=== PATIENT | female | born 1975 | race Caucasian/White ===

== ENCOUNTER → 2021-12-12 12:30 | Outpatient (BNVA) | payer MEDICAID, SELFPAY | PROVIDERS: Visit Provider Internal Medicine | DX: R76.8 Other specified abnormal immunological findings in serum (principal); K90.0 Celiac disease; M25.50 Pain in unspecified joint; Z11.59 Encounter for screening for other viral diseases | CPT/HCPCS: 80053; 81003; 82550; 82607; 82784; 83516; 83735; 84100; 84443; 84550; 85025; 85651; 86140; 86160; 86162; 86235; 86255; 86376; 86704; 86803; 87340; 99204 ==

== ENCOUNTER 2022-01-16 11:15 | Outpatient (CLI) | payer MEDICAID, SELFPAY ==
[2022-01-16 12:51] LABS: Complement C3 178 mg/dL (90-180)
== END 2022-01-16 11:16 | disposition home or self-care (01) ==
LOC: LAB 11:15
PROVIDERS: PCP Nurse Practitioner Family; Visit Provider Internal Medicine
DX: R76.8 Other specified abnormal immunological findings in serum (principal); K90.0 Celiac disease; M25.50 Pain in unspecified joint; R21 Rash and other nonspecific skin eruption; Z11.1 Encounter for screening for respiratory tuberculosis
CPT/HCPCS: 86160; 99214

== ENCOUNTER → 2022-02-04 16:22 | Outpatient (BNVA) | payer MEDICAID, SELFPAY | PROVIDERS: PCP Nurse Practitioner Family; Visit Provider Internal Medicine | DX: R76.8 Other specified abnormal immunological findings in serum (principal); K90.0 Celiac disease; M25.50 Pain in unspecified joint; L40.9 Psoriasis, unspecified; M19.041 Primary osteoarthritis, right hand; M47.812 Spondylosis without myelopathy or radiculopathy, cervical region | CPT/HCPCS: 36415; 72040; 72100; 72202; 73120; 80053; 82550; 83735; 84100; 85025; 85651; 86480 ==

== ENCOUNTER 2022-03-14 13:08 | Outpatient (CLI) | payer MEDICAID, SELFPAY ==
[2022-03-14 13:51] LABS: Basophils # 0.1 10^3/uL (0.0-0.1); Basophils % 1.1 %; Eosinophils # 0.1 10^3/uL (0.0-0.8); Eosinophils % 2.1 %; Hematocrit 40.5 % (37.0-47.0); Hemoglobin 13.2 g/dL (11.5-15.3); Lymphocytes # 2.3 10^3/uL (0.8-4.8); Lymphocytes % 33.8 %; Mean Corpuscular HGB Conc 32.6 g/dL (30.0-36.0); Mean Corpuscular Hemoglobin 28.1 pg (28.0-34.0); Mean Corpuscular Volume 86.2 fl (81-99); Mean Platelet Volume 9.4 fL (7.4-10.4); Monocytes # 0.5 10^3/uL (0.2-0.9); Monocytes % 7.7 %; Neutrophils # 3.67 10^3/uL (1.8-7.7); Nucleated Red Blood Cells % 0 %; Platelet Count 391 10^3/cmm (130-400); Red Cell Distribution Width 12.5 % (12.1-15.1); White Blood Count 6.7 10^3/uL (4.0-10.0)
[2022-03-14 14:19] LABS: Alanine Aminotransferase 17 U/L (0-33); Alkaline Phosphatase 117 U/L (35-105); Anion Gap 10.6 (5-19); Aspartate Amino Transferase 15 U/L (0-32); Blood Urea Nitrogen 14 mg/dL (6-20); Calcium 9.3 mg/dL (8.5-10.5); Carbon Dioxide 28 mmol/L (22-29); Chloride 102 mmol/L (98-107); Glomerular Filtration Rate 106.7 mL/min (90-130); Glucose 115 mg/dL (65-115); Osmolality Calculated 285 mOsm/kg (285-295); Potassium 3.6 mmol/L (3.5-5.1); Sodium 137 mmol/L (136-145); Total Bilirubin 0.2 mg/dL (0.15-1.2)
== END 2022-03-14 13:09 | disposition home or self-care (01) ==
LOC: LAB 13:14
PROVIDERS: PCP Nurse Practitioner Family; Visit Provider Internal Medicine
DX: R76.8 Other specified abnormal immunological findings in serum (principal)
CPT/HCPCS: 36415; 80053; 85025

== ENCOUNTER 2022-05-27 08:49 | Emergency (ER) | payer MEDICAID, SELFPAY ==
[2022-05-27 08:54] VITALS: BP 129/88; PULSE 138; RESP 15; TEMP 37.1; O2SAT 98; BMI 34.7
[2022-05-27 08:58] VITALS: BP 136/98; RESP 16; O2SAT 96
--- NOTE | 2022-05-27 09:04 | W.ED.GENADLT ---
HPI - General Adult General: Chief complaint: General Medical Stated complaint: Throat swollen Time Seen by Provider: 05/27/22 08:54 Source: patient Mode of arrival: ambulatory Limitations: no limitations History of Present Illness: Patient is a 47-year-old female presents to ED today with complaint of a sore throat and fevers. She states her throat began bothering her approximately 4 days ago. She is complaining of some dysphagia but is able to eat and drink and control secretions. She states yesterday she began running fevers as high as 101.0. 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 Patient has not noticed any change in her voice. She is not having any other URI-like symptoms. She is not having any abdominal pain. Onset (ago): day(s) Location: mouth (throat) Pain Consistency: constant Relieving factors: none Exacerbating factors: other (swallowing) Associated symptoms: Deny chest pain, dyspnea, headache(s), malaise, nausea, rash or vomiting Review of Systems Const: Reports: fever(s); Denies: body aches, fatigue or malaise Eyes: Denies: change in vision, blurry vision, photophobia or eye discharge ENMT: Reports: throat pain, enlarged tonsils and odynophagia; Denies: uvular edema, hoarseness, mouth pain, swelling of lips/tongue, oral sores, dental pain, ear or mastoid pain, nasal congestion, epistaxis or sinus pain Card: Denies: chest pain Resp: Denies: dyspnea GI: Denies: abdominal pain, nausea, vomiting or change in bowel habits Musc: Denies: neck pain Skin/Breast: Denies: rash Neuro: Denies: headache(s), dizziness or vertigo PFS ED PFSH: Medical History Celiac disease Rosacea Family History Other Arthritis CAD (coronary artery disease) Cancer Diabetes Lupus Denies family history of Dementia Stroke Social History Smoking and tobacco status: never smoked Alcohol intake: never Lives independently: Yes Household members: spouse Marital status: Physical Exam Const: COMMON NORMALS: no acute distress, average body habitus, patient oriented x3, no limitations, healthy appearing, alert and well nourished GENERAL APPEARANCE: cooperative ORIENTATION/CONSCIOUSNESS: Yes awake, Yes oriented to person, Yes oriented to place and Yes oriented to time HENMT: COMMON NORMALS: normocephalic, atraumatic, hearing grossly normal bilaterally, external ears normal, EAC's normal, TM's normal bilaterally, Normal external nose present, Normal nasal mucous membranes and turbinates present, moist oral mucous membranes and gingiva normal HEAD & SCALP: normal to inspection, normocephalic and atraumatic FACE & SINUS: normal facial exam NOSE: Normal external nose present and Normal nasal mucous membranes and turbinates present EXTERNAL EAR: Yes external ears normal EXTERNAL AUDITORY CANAL: EAC's normal TYMPANIC MEMBRANE: TM's normal bilaterally MOUTH: Normal oral and palatal mucosa present, lip normal and tongue normal THROAT: uvula midline and abnormal tonsil bilateral erythema and exudates; no uvular edema OTHER: no muffled voice, no REDUCING SALON ATTENDANT present, no neck swelling appreciated Eye: GENERAL EYE: appearance normal, both eyes and all related structures Neck/C-Spine: COMMON NORMALS: full ROM GENERAL: Yes normal visual inspection and Yes lymphadenopathy Resp: COMMON NORMALS: normal respiratory effort and clear to auscultation bilaterally AUSCULTATION: clear to auscultation bilaterally Cardio: COMMON NORMALS: regular rhythm RATE: tachycardic RHYTHM: regular rhythm GI: COMMON NORMALS: Normal to inspection, nondistended, normoactive bowel sounds present, Soft to palpation, non-tender and No hepatosplenomegaly present PALPATION: Yes Soft to palpation and Yes No hepatosplenomegaly present Neuro: OTTO COMA SCALE: document GCS findings Otto coma scale eye opening: Spontaneous Taylor coma scale verbal response: Orientated Otto coma scale motor response: Obey commands Taylor coma scale total score: 15 COMMON NORMALS: patient oriented x3 and CN's II-XII intact bilaterally SENSORIUM/ORIENTATION: Yes alert, Yes oriented to person, Yes oriented to place and Yes oriented to time Skin: COMMON NORMALS: no rashes or lesions noted GENERAL SKIN EXAM: no rashes or lesions noted Course Vital Signs: Vital signs: Vital Signs Temperature 98.7 F 05/27/22 08:54 Pulse Rate 138 H 05/27/22 08:54 Respiratory Rate 16 05/27/22 08:58 Blood Pressure 136/98 05/27/22 08:58 Pulse Oximetry 96 05/27/22 08:58 Oxygen Delivery Me thod 05/27/22 08:58 MDM - General Adult Medical Decision Making Patient has exudative tonsillitis with lymphadenopathy and fever in the absence of other URI-like symptoms. I think it would be appropriate to place her on antibiotics at this time. An allergy to penicillins. She will be placed on Keflex. Return to ED precautions given. Lab Data Laboratory Results Group A Strep Rapid Negative (Negative) 05/27/22 09:30 Discharge Plan Discharge Patient Disposition: Home Clinical Impression: Exudative tonsillitis Condition: Stable Prescriptions: New cephalexin 500 mg capsule 500 mg PO Q6H 7 Days Qty: 28 0RF No Action cetirizine 10 mg tablet 10 mg PO DAILY PRN fluticasone propionate 50 mcg/actuation spray,suspension 1 spray intranasal DAILY Rx Instructions: administer into each nostril ondansetron 4 mg tablet,disintegrating 4 mg PO Q8H hydroxychloroquine 200 mg tablet 200 mg PO BID 30 Days Qty: 60 0RF meloxicam 15 mg tablet 15 mg PO DAILY Qty: 30 3RF leflunomide 10 mg tablet 10 mg PO DAILY Qty: 30 1RF Discharge Orders: Discharge ED (Routine); Ordered 05/27/22 Ordered By: Laurie Brush Referrals: Melanie Abarca FNP [Primary Care Provider] - Patient Instructions: Tonsillitis - Adult Coding Level of Care Code ED Parachute Accessories Attacher for Chg Fwd Exam Comprehensive
[2022-05-27 09:52] LABS: Rapid Strep A Test Negative (Negative)
== END 2022-05-27 10:19 | disposition home or self-care (01) ==
PROVIDERS: Emergency Provider Physician Assistant; PCP Nurse Practitioner Family
DX: J03.90 Acute tonsillitis, unspecified (principal)
CPT/HCPCS: 87081; 87880; 99283

== ENCOUNTER → 2022-05-31 14:29 | Outpatient (BNVA) | payer MEDICAID, SELFPAY | PROVIDERS: PCP Nurse Practitioner Family; Visit Provider Podiatrist Foot & Ankle Surgery | DX: S99.911A Unspecified injury of right ankle, initial encounter (principal); W19.XXXA Unspecified fall, initial encounter; S93.401A Sprain of unspecified ligament of right ankle, initial encounter | CPT/HCPCS: 73610; 73630 ==

== ENCOUNTER → 2022-06-13 13:14 | Outpatient (BNVA) | payer MEDICAID, SELFPAY | PROVIDERS: PCP Nurse Practitioner Family; Visit Provider Podiatrist Foot & Ankle Surgery | DX: S93.401A Sprain of unspecified ligament of right ankle, initial encounter (principal); W00.9XXA Unspecified fall due to ice and snow, initial encounter; R29.898 Other symptoms and signs involving the musculoskeletal system; M25.571 Pain in right ankle and joints of right foot | CPT/HCPCS: 73610 ==

== ENCOUNTER 2022-07-01 11:35 | Outpatient (CLI) | payer MEDICAID, SELFPAY ==
--- NOTE | 2022-07-01 11:30 | CT_ITS ---
WS: [id number] CT RIGHT ANKLE, NONCONTRAST. HISTORY: evaluate for medial posterior malleolus fracture Technique: All CT scans at [facility] use at least one of these dose optimization techniques: automated exposure control; mA and/or kV adjustment per patient size (includes targeted exams where dose is matched to clinical indication); or iterative reconstruction. DLP: 130.56 mGy.cm COMPARISON: Radiograph 05/31/2022 and 06/13/2022 Nondisplaced posterior malleolus fracture. There is mild callus formation present but the fracture li ne is still apparent. Very subtle loss of the normal cortex along the anterior plafond. Suspect corti emani injury anteriorly. Very subtle lucency extends through the anterior tibial plafond which may be f rom additional healing of a nondisplaced fracture which extends to the cortical injury anteriorly. Th ere are very small loose bodies in the tibiotalar joint posteriorly. The talus is normal. The distal fibula appears intact. Calcaneus is normal with a few small sclerotic foci which are probably bone is lands. Mild soft tissue edema surrounding the distal tibia. No foreign bodies. CT/CT ankle RT wo con* [id number] IMPRESSION: 1. Nondisplaced vertical posterior malleolus fracture with mild but incomplete healing. 2. Very subtle loss of the normal cortex along the anterior tibial plafond. Co nsistent with cortical, trabecular injury. 3. Very tiny intra-articular bone fragments in the tibiotalar joint.
== END 2022-07-01 11:36 | disposition home or self-care (01) ==
LOC: RAD 11:36
PROVIDERS: PCP Nurse Practitioner Family; Visit Provider Podiatrist Foot & Ankle Surgery
DX: M25.571 Pain in right ankle and joints of right foot (principal); S82.891A Other fracture of right lower leg, initial encounter for closed fracture; W00.9XXA Unspecified fall due to ice and snow, initial encounter
CPT/HCPCS: 73700

== ENCOUNTER → 2022-07-02 16:40 | Outpatient (BNVA) | payer MEDICAID, SELFPAY | PROVIDERS: PCP Nurse Practitioner Family; Visit Provider Podiatrist Foot & Ankle Surgery | DX: M25.50 Pain in unspecified joint (principal); R76.8 Other specified abnormal immunological findings in serum | CPT/HCPCS: 36415; 80053; 85025; 85651; 86140 ==

== ENCOUNTER → 2022-07-15 15:57 | Outpatient (BNVA) | payer MEDICAID, SELFPAY | PROVIDERS: PCP Nurse Practitioner Family; Visit Provider Podiatrist Foot & Ankle Surgery | DX: S82.391D Other fracture of lower end of right tibia, subsequent encounter for closed fracture with routine healing (principal); W00.9XXD Unspecified fall due to ice and snow, subsequent encounter | CPT/HCPCS: 73610 ==

== ENCOUNTER → 2022-07-29 09:47 | Outpatient (BNVA) | payer MEDICAID, SELFPAY | PROVIDERS: PCP Nurse Practitioner Family; Visit Provider Podiatrist Foot & Ankle Surgery | DX: S82.391D Other fracture of lower end of right tibia, subsequent encounter for closed fracture with routine healing (principal); W00.9XXD Unspecified fall due to ice and snow, subsequent encounter | CPT/HCPCS: 73610 ==

== ENCOUNTER 2022-10-08 13:53 | Outpatient (CLI) | payer MEDICAID, SELFPAY ==
[2022-10-08 14:53] LABS: Basophils # 0.1 10^3/uL (0.0-0.1); Basophils % 0.7 %; Eosinophils # 0.1 10^3/uL (0.0-0.8); Eosinophils % 1.7 %; Hematocrit 40.4 % (37.0-47.0); Hemoglobin 13.1 g/dL (11.5-15.3); Lymphocytes # 2.7 10^3/uL (0.8-4.8); Mean Corpuscular HGB Conc 32.4 g/dL (30.0-36.0); Mean Corpuscular Hemoglobin 28.6 pg (28.0-34.0); Mean Corpuscular Volume 88.2 fl (81-99); Mean Platelet Volume 9.2 fL (7.4-10.4); Monocytes # 0.7 10^3/uL (0.2-0.9); Monocytes % 8.1 %; Neutrophils # 4.63 10^3/uL (1.8-7.7); Neutrophils % 56.4 %; Nucleated Red Blood Cells % 0 %; Platelet Count 346 10^3/cmm (130-400); Red Blood Count 4.58 10^6/uL (4.1-5.3); White Blood Count 8.2 10^3/uL (4.0-10.0)
[2022-10-08 14:55] LABS: Erythrocyte Sedimentation Rate 6 mm/hr (0-15)
[2022-10-08 15:11] LABS: Anion Gap 14.1 (5-19); Blood Urea Nitrogen 12 mg/dL (6-20); Carbon Dioxide 27 mmol/L (22-29); Chloride 98 mmol/L (98-107); Potassium 4.1 mmol/L (3.5-5.1); Sodium 135 mmol/L (136-145)
[2022-10-08 15:12] LABS: Alanine Aminotransferase 15 U/L (0-33); Albumin Level 4.2 g/dL (3.5-5.2); Alkaline Phosphatase 103 U/L (35-105); Aspartate Amino Transferase 14 U/L (0-32); C Reactive Protein 5.5 mg/L (0.0-4.9); Calcium 9.2 mg/dL (8.5-10.5); Globulin 2.9 g/dL (1.3-4.6); Glomerular Filtration Rate 89.3 mL/min (90-130); Glucose 82 mg/dL (65-115); Osmolality Calculated 279 mOsm/kg (285-295); Total Bilirubin 0.2 mg/dL (0.15-1.2); Total Protein 7.1 g/dL (6.6-8.7)
== END 2022-10-08 13:54 | disposition home or self-care (01) ==
LOC: LAB 13:56
PROVIDERS: PCP Nurse Practitioner Family; Visit Provider Internal Medicine
DX: R76.8 Other specified abnormal immunological findings in serum (principal)
CPT/HCPCS: 36415; 80053; 85025; 85651; 86140

== ENCOUNTER → 2022-10-10 15:21 | Outpatient (BNVA) | payer MEDICAID, SELFPAY | PROVIDERS: PCP Nurse Practitioner Family; Visit Provider Podiatrist Foot & Ankle Surgery | DX: S82.391D Other fracture of lower end of right tibia, subsequent encounter for closed fracture with routine healing (principal); W00.9XXD Unspecified fall due to ice and snow, subsequent encounter | CPT/HCPCS: 73610 ==

== ENCOUNTER 2022-10-10 16:13 | Outpatient (CLI) | payer MEDICAID, SELFPAY | END 2022-10-10 16:14 | disposition home or self-care (01) | LOC: SPT 16:14 | PROVIDERS: PCP Nurse Practitioner Family; Visit Provider Podiatrist Foot & Ankle Surgery | DX: Z46.89 Encounter for fitting and adjustment of other specified devices (principal); S82.391D Other fracture of lower end of right tibia, subsequent encounter for closed fracture with routine healing; X58.XXXD Exposure to other specified factors, subsequent encounter | CPT/HCPCS: 97760; L4361 ==

== ENCOUNTER 2022-11-28 11:37 | Outpatient (CLI) | payer MEDICAID, SELFPAY ==
[2022-11-28 12:53] LABS: Basophils # 0.1 10^3/uL (0.0-0.1); Basophils % 0.7 %; Eosinophils # 0.1 10^3/uL (0.0-0.8); Eosinophils % 0.9 %; Hematocrit 41.3 % (37.0-47.0); Hemoglobin 13.1 g/dL (11.5-15.3); Lymphocytes # 2.3 10^3/uL (0.8-4.8); Lymphocytes % 21.5 %; Mean Corpuscular HGB Conc 31.7 g/dL (30.0-36.0); Mean Corpuscular Hemoglobin 27.8 pg (28.0-34.0); Mean Corpuscular Volume 87.7 fl (81-99); Mean Platelet Volume 9.2 fL (7.4-10.4); Monocytes # 0.7 10^3/uL (0.2-0.9); Monocytes % 6.3 %; Neutrophils # 7.49 10^3/uL (1.8-7.7); Neutrophils % 70.2 %; Nucleated Red Blood Cells % 0 %; Platelet Count 416 10^3/cmm (130-400); Red Blood Count 4.71 10^6/uL (4.1-5.3); Red Cell Distribution Width 13.2 % (12.1-15.1); White Blood Count 10.7 10^3/uL (4.0-10.0)
[2022-11-28 12:55] LABS: Erythrocyte Sedimentation Rate 7 mm/hr (0-15)
[2022-11-28 13:19] LABS: Alanine Aminotransferase 21 U/L (0-33); Alkaline Phosphatase 89 U/L (35-105); Anion Gap 11.9 (5-19); Aspartate Amino Transferase 13 U/L (0-32); Blood Urea Nitrogen 11 mg/dL (6-20); C Reactive Protein 4.3 mg/L (0.0-4.9); Calcium 9.1 mg/dL (8.5-10.5); Carbon Dioxide 29 mmol/L (22-29); Chloride 102 mmol/L (98-107); Globulin 2.7 g/dL (1.3-4.6); Glomerular Filtration Rate 89.3 mL/min (90-130); Glucose 107 mg/dL (65-115); Osmolality Calculated 288 mOsm/kg (285-295); Potassium 3.9 mmol/L (3.5-5.1); Sodium 139 mmol/L (136-145); Total Bilirubin 0.4 mg/dL (0.15-1.2); Total Protein 6.7 g/dL (6.6-8.7)
== END 2022-11-28 11:38 | disposition home or self-care (01) ==
LOC: LAB 11:40
PROVIDERS: PCP Nurse Practitioner Family; Visit Provider Internal Medicine
DX: M25.50 Pain in unspecified joint (principal); R76.8 Other specified abnormal immunological findings in serum
CPT/HCPCS: 80053; 85025; 85651; 86140

== ENCOUNTER 2023-03-24 12:14 | Outpatient (CLI) | payer MEDICAID, SELFPAY ==
[2023-03-24 13:10] LABS: Complement C3 166 mg/dL (90-180)
== END 2023-03-24 12:15 | disposition home or self-care (01) ==
LOC: LAB 12:18
PROVIDERS: PCP Nurse Practitioner Family; Visit Provider Internal Medicine
DX: Z01.89 Encounter for other specified special examinations (principal)
CPT/HCPCS: 86160

== ENCOUNTER 2023-04-02 13:28 | Outpatient (CLI) | payer MEDICAID, SELFPAY ==
--- NOTE | 2023-04-02 13:45 | MR_ITS ---
WS: [id number] MRI CERVICAL SPINE NONCONTRAST TECHNIQUE: Sagittal T1, T2 and STIR imaging. Axial T2, gradient, and fiesta imaging. CLINICAL INFORMATION: M54.12 - Radiculopathy, cervical region COMPARISON: None. FINDINGS: Straightening of the normal cervical lordosis. No high-grade central canal stenosis. Cord signal is n ormal. C2-C3: Normal. C3-C4: Normal. C4-C5: Mild disc osteophytic ridging. Mild facet arthropathy. Mild LEFT foraminal narrowing. RIGHT fo ramen is patent. Tiny RIGHT paracentral protrusion with slight indentation on the cervical cord. C5-C6: Tiny RIGHT paracentral protrusion. Slight indentation RIGHT ventral cervical cord. Moderate fa cet arthropathy. Mild LEFT and no significant RIGHT foraminal narrowing. C6-C7: Tiny shallow central protrusion. Mild LEFT and no significant RIGHT foraminal narrowing. Spina l canal is patent. Mild facet arthropathy. C7-T1: Disc osteophyte complex with endplate ridging. Mild LEFT and no significant RIGHT foraminal na rrowing. Spine canal is patent. T1-T2: Tiny RIGHT paracentral protrusion with slight effacement of the ventral thecal sac. Mild bilat eral foraminal narrowing. Visualized brain stem structures: Normal. Prevertebral soft tissues: Normal. IMPRESSION: 1. Straightening of the normal cervical doses. Cord signal is normal. 2. Mild central canal stenosis C4-C5, C5-C6, and C6-C7 with tiny protrusions. 3. Mild bony foraminal narrowing more prominent at LEFT C4-C5 and LEFT C5-C6. 4. Moderate facet arthropathy C4-C5 and LEFT C5-C6.
== END 2023-04-02 13:29 | disposition home or self-care (01) ==
LOC: RAD 13:28
PROVIDERS: PCP Nurse Practitioner Family; Visit Provider Anesthesiology Pain Medicine
DX: M47.22 Other spondylosis with radiculopathy, cervical region (principal); M48.02 Spinal stenosis, cervical region
CPT/HCPCS: 72141

== ENCOUNTER → 2023-04-30 13:37 | Outpatient (BNVA) | payer MEDICAID, SELFPAY | PROVIDERS: PCP Nurse Practitioner Family; Visit Provider Obstetrics & Gynecology | DX: R89.6 Abnormal cytological findings in specimens from other organs, systems and tissues (principal); Z90.721 Acquired absence of ovaries, unilateral; N83.202 Unspecified ovarian cyst, left side; N83.292 Other ovarian cyst, left side | CPT/HCPCS: 76830 ==

== ENCOUNTER 2023-05-08 08:39 | Day surgery (SDC) | payer MEDICAID, SELFPAY ==
--- NOTE | 2023-05-07 23:21 | W.PM.OPSFHP ---
Same Day Surgery H&P Indication for Procedure/HPI DATE OF PROCEDURE: May 08, 2023 CHIEF COMPLAINT/INDICATIONFOR SURGICAL PROCEDURE: abnormal uterine bleeding, abnormal Pap PREOP DIAGNOSIS: abnormal uterine bleeding, abnormal Pap PLANNED PROCEDURE: Operation Date: 05/08/23 10:30 Proposed Procedures p Hysteroscopy, endometrial sampling, possible endometrial polypectomy 71883, LEEP cervical excision 02265,R87.612(Not Applicable) - Juan Stringer MD s possible endometrial polypectomy(Not Applicable) - Juan Stringer MD s LEEP cervical excision [id number](Not Applicable) - Juan Stringer MD 48 yo. A2 States always had normal paps Pap done 04-02-23 - LGSIL, negative HPV h/o endometrial ablation and bilateral salpingectomy in [place] 9 years ago c/o ?random spotting? x 4 years + spotting with intercourse Now scheduled for hysteroscopy, endometrial sampling, possible endometrial polypectomy; LEEP cervical excision Medications/Allergies* Home Medications Medication Instructions Recorded Confirmed Type cetirizine 10 mg tablet 10 mg PO DAILY PRN Allergic 12/12/21 05/07/23 History Symptoms fluticasone propionate 50 1 spray intranasal DAILY 12/12/21 05/07/23 History mcg/actuation nasal spray,suspension ondansetron 4 mg disintegrating 4 mg PO Q8H 01/16/22 05/07/23 History tablet Allergies/Adverse Reactions Allergy/AdvReac Type Severity Reaction Status Date / Time Penicillins Allergy Mild abdominal Verified 05/07/23 11:43 pain Alpha-Gal Allergy rash Verified 05/07/23 11:43 (Xpawxxmvn-Hnlpu-2,3-Gala Pertinent History/Comorbid Conditions* Medical History (Updated 05/02/23 @ 21:46 by Juan Stringer MD) Cervicalgia Rosacea Celiac disease Family History (Updated 04/21/23 @ 14:43 by Jeovanny Zambrano) Colon cancer Mother Thyroid cancer Mother Sister Diabetes Mother Lupus CAD (coronary artery disease) Arthritis Heart disease Father Hyperlipidemia Father Breast cancer Mother Cancer Hypertension Father Uterine cancer Mother Sister Stroke Father Denies family history of Ovarian cancer Dementia Social History Smoking and tobacco/nicotine status: never used tobacco/nicotine Alcohol intake: never Substance/Drug Use: never Lives independently: Yes Household members: spouse Marital status: Pertinent Exam Findings alert, oriented x 3, clear to auscultation bilaterally and regular rate & rhythm Pertinent Data Pelvic sono 04-30-23 uterus 7.7 x 5.3 x 4.4 cm Endometrium 4 mm 1.9 cm undefined mass posterior to fundal endometrium Right ov surgically absent Left ovary with 2.5 cm simple cyst Recommendations Surgery/Procedure today Coding Level of Care Code Acute Code for Chg Fwd Time Spent (min) 20
[2023-05-08] VITALS (13 sets, daily range): BP systolic 134–175; BP diastolic 84–108; PULSE 83–118; RESP 10–22; TEMP 36.1–36.4; O2SAT 91–100; BMI 37.4
[2023-05-08] MEDS: sodium chloride 0.9% 1,000 ML 30 ML IV (09:33)
--- NOTE | 2023-05-08 09:38 | W.PM.OPSUD ---
Surgery/Procedure H&P Update DATE OF PROCEDURE: May 08, 2023 DATE H&P PERFORMED: 05/07/23 H&P UPDATE INFORMATION: I have reviewed H&P completed within last 30 days, I have examined patient prior to procedure and No changes to prior documentation PREOP DIAGNOSIS: abnormal uterine bleeding, abnormal pap PRIMARY INDICATION FOR PROCEDURE: abnormal uterine bleeding, abnormal pap PLANNED PROCEDURE: Operation Date: 05/08/23 10:30 Proposed Procedures p Hysteroscopy, endometrial sampling, possible endometrial polypectomy 50618, LEEP cervical excision 92876,R87.612(Not Applicable) - Juan Stringer MD s possible endometrial polypectomy(Not Applicable) - Juan Stringer MD s LEEP cervical excision 48061(Not Applicable) - Juan Stringer MD
[2023-05-08 09:40] LABS: OR HCG Qualitative Urine Negative (Negative)
--- NOTE | 2023-05-08 10:05 | ANES.PREANE2 ---
Pre-Anesthetic Assessment Height/Weight: Height 1.55 m Weight 89.811 kg Temp Pulse Resp BP Pulse Ox O2 Del Method 97.6 F 91 16 166/108 100 Room Air 05/08/23 09:18 05/08/23 09:18 05/08/23 09:18 05/08/23 09:18 05/08/23 09:18 05/08/23 09:18 Preop Diagnosis: abnormal uterine bleeding, abnormal pap Operation Date: 05/08/23 10:30 Proposed Procedures p Hysteroscopy, endometrial sampling, possible endometrial polypectomy 99396, LEEP cervical excision 57566,R87.612(Not Applicable) - Juan Stringer MD s possible endometrial polypectomy(Not Applicable) - Juan Stringer MD s LEEP cervical excision [id number](Not Applicable) - Juan Stringer MD Familial anesthetic complications: None Was Beta Erick taken within 24 hours: N/A Was Clonidine taken within 24 hours: N/A Last intake: Intake Last Liquid Date 05/07/23 Last Liquid Time 19:30 Last Solid Date 05/07/23 Last Solid Time 19:30 Social No alcohol and No tobacco Exam alert, oriented x 3, clear to auscultation bilaterally and regular rate & rhythm Airway Mallampati: Class I Dentition: full GI celiac's Anesthetic Plan ASA status: 2 Anesthesia: General Risk of > 500 ml blood loss (7ml/kg in children): No Medications/Allergies Home Medications Medication Instructions Recorded Confirmed Last Taken Type cetirizine 10 mg tablet 10 mg PO DAILY PRN Allergic 12/12/21 05/08/23 05/06/23 History Symptoms fluticasone propionate 50 1 spray intranasal DAILY 12/12/21 05/08/23 2 Months Ago History mcg/actuation nasal ~03/08/23 spray,suspension ondansetron 4 mg disintegrating 4 mg PO Q8H 01/16/22 05/08/23 3 Months Ago History tablet ~02/06/23 ASO to right #1 ea 07/15/22 05/07/23 Unknown Rx hydroxyzine HCl 10 mg tablet 10 mg PO TID PRN itching #60 tabs 09/24/22 05/08/23 05/06/23 Rx Cam Boot #1 ea 10/10/22 05/07/23 Unknown Rx adalimumab 40 mg/0.8 mL See Rx Instructions SUBCUT 02/04/23 05/08/23 04/23/23 Rx subcutaneous pen kit (Humira Pen) .COMPLEX #4 ea celecoxib 100 mg capsule (Celebrex) 100 mg PO BID #60 caps 02/04/23 05/08/23 05/06/23 Rx duloxetine 30 mg capsule,delayed 30 mg PO DAILY Pain and anxiety 05/07/23 05/08/23 1 Week Ago Rx release (Cymbalta) #30 caps ~05/01/23 hydroxychloroquine 200 mg tablet 200 mg PO BID 30 days #60 tabs 05/07/23 05/08/23 05/06/23 Rx tizanidine 4 mg tablet 4 mg PO BID PRN muscle spasticity 05/07/23 05/08/23 2 Months Ago Rx #60 tabs ~03/08/23 Allergies Allergy/AdvReac Type Severity Reaction Status Date / Time Penicillins Allergy Mild abdominal Verified 05/08/23 09:30 pain Alpha-Gal Allergy rash Verified 05/08/23 09:30 (Rnrhndzjr-Kavom-1,3-Gala Current Medications Generic Name Dose Route Start Last Admin Trade Name Freq PRN Reason Stop Dose Admin Sodium Chloride 1,000 mls @ 30 mls/hr 05/08/23 09:00 05/08/23 09:33 Sodium Chloride 0.9% IV 05/09/23 08:59 30 mls/hr .Q24H SANA Administration PFSH Anesthesia Medical History Cervicalgia Rosacea Celiac disease Family History Mother Breast cancer Colon cancer Uterine cancer Thyroid cancer Diabetes Sister Uterine cancer Thyroid cancer Father Heart disease Hyperlipidemia Hypertension Stroke Other Arthritis CAD (coronary artery disease) Cancer Lupus Denies family history of Ovarian cancer Dementia Social History Smoking and tobacco/nicotine status: never used tobacco/nicotine Alcohol intake: never Substance/Drug Use: never Lives independently: Yes Household members: spouse Marital status: Data Anesthesia Cardiac Studies: No Data to Display
[2023-05-08] MEDS: vasopressin 20 unit/mL INJ INJECTION (10:47)
--- NOTE | 2023-05-08 10:48 | PC.NURSE ---
[employer]'s used during procedure. Lot:[id number] Exp date:[id number]
[2023-05-08] MEDS: fentaNYL 50 mcg/mL INJ 2mL IVP (11:37)
--- NOTE | 2023-05-08 13:15 | ANE.PACU2 ---
Inpatient post-anesthesia follow up: Airway intact: Yes Vital signs: Temperature 97.4 F Pulse Rate 99 Respiratory Rate 18 Blood Pressure 140/94 Pulse Oximetry 95 Oxygen Delivery Me thod Room Air Oxygen Flow Rate 6 Fraction of Inspir ed Oxygen Hydration adequate: Yes Nausea and vomiting: No Pain level: 1 Mental status: Baseline
--- NOTE | 2023-05-08 22:48 | PM.OP ---
Operative Report Date of procedure: May 08, 2023 Pre-op diagnosis: Abnormal uterine bleeding Abnormal pap Post-op diagnosis: same Post-op findings: +3 uterine descensus, to introitus Cervix stenotic + constricted endometrial cavity, likely due to uterine fibroid or mass obstructing cavity Procedure done: hysteroscopy Curettage of uterus Electrosurgical loop excision of cervix Implants: none Specimens removed/disposition: endometrial curettings cervical excision Surgeon: Juan Stringer MD Anesthesia: General Estimated blood loss (mL): 5 Complications: none Condition: stable Disposition: PACU Brief History: 48 yo. A2 Pap done 04-02-23 - LGSIL, negative HPV h/o endometrial ablation and bilateral salpingectomy in [place] 9 years ago c/o ?random spotting? x 4 years + spotting with intercourse scheduled for hysteroscopy, endometrial sampling, possible endometrial polypectomy; LEEP cervical excision Procedure: Informed consent signed. Patient was taken to the operating room. Anesthesia was induced. Patient was placed in dorsolithotomy position, prepped and draped for hysteroscopy. A bivalve speculum was placed in the vagina. 3+ descensus of the uterus and cervix to the perineum was noted. The anterior lip of the cervix was grasped with a sharp-toothed tenaculum. The cervix was noted to be stenotic, was serially dilated with Hegar dilators. A hysteroscope was placed into the endometrial cavity. The endometrial cavity was seen to be constricted by a fibroid or mass at the fundus. There were no polyps or fibroids. There was a minimal amount of endometrial tissue. The hysteroscope was then removed. Endometrial curettage was done with a sharp curette. Endometrial tissue was sent to pathology. Attention was then turned to the electrosurgical loop excision of the cervix. The cervix was infiltrated at the cervicovaginal junction with 20 U of vasopressin to decrease bleeding. Electrosurgical loop excision of the cervix was done to a depth of approximately 4 mm. Minimal bleeding was seen. Monsel?s solution was applied to the cervix. Excellent hemostasis was noted. All instruments were then removed. The patient was placed supine, awakened, and taken to the recovery room. Postoperative condition: stable EBL: less than 5 cc Complications: none Sponge and instrument counts were correct x two
== END 2023-05-08 13:00 | disposition home or self-care (01) ==
PROVIDERS: Anesthesiology; PCP Nurse Practitioner Family; Visit Provider Obstetrics & Gynecology
PROC: 0UBC7ZZ Excision of Cervix, Via Natural or Artificial Opening (ICD-10-PCS; CPT 57522; 2023-05-08 10:20)
PROC: 0UJD8ZZ Inspection of Uterus and Cervix, Via Natural or Artificial Opening Endoscopic (ICD-10-PCS; CPT 58555; 2023-05-08 10:20)
DX: N93.9 Abnormal uterine and vaginal bleeding, unspecified (principal); R87.619 Unspecified abnormal cytological findings in specimens from cervix uteri
CPT/HCPCS: 57460; 58558; 84703; 88305; 88307; J1100; J1170; J1200; J1885; J2405; J2704; J2710; J3010; J3490; J7030

== ENCOUNTER → 2023-06-04 15:17 | Outpatient (BNVA) | payer MEDICAID, SELFPAY | PROVIDERS: PCP Nurse Practitioner Family; Visit Provider Internal Medicine | DX: R76.8 Other specified abnormal immunological findings in serum (principal) | CPT/HCPCS: 36415; 80053; 85025; 85651; 86140 ==

== ENCOUNTER 2023-08-28 10:41 | Outpatient (CLI) | payer MEDICAID, SELFPAY ==
--- NOTE | 2023-08-28 11:00 | FL_ITS ---
WS: [id number] EXAMINATION: FL barium swallow modifd [id number] ORDER DATE: 08/28/2023 10:45 AM REASON FOR EXAM: COMPARISON: None available. FLUOROSCOPY TIME: 1min [id number] # OF SPOT FILMS: 8 video runs FINDINGS: There is good oral motor control. The swallowing mechanism is intact. There is no evidence of penetration or aspiration. The barium tablet passed freely into the stomach. IMPRESSION: The swallowing mechanism is intact. Please see complete speech pathology report for findings and luisa mmendations.
== END 2023-08-28 10:42 | disposition home or self-care (01) ==
LOC: RAD 10:42
PROVIDERS: PCP Nurse Practitioner Family; Visit Provider Otolaryngology
DX: R13.10 Dysphagia, unspecified (principal); J34.3 Hypertrophy of nasal turbinates; J34.2 Deviated nasal septum
CPT/HCPCS: 74230; 92611

== ENCOUNTER → 2023-09-08 15:42 | Outpatient (BNVA) | payer MEDICAID, SELFPAY | PROVIDERS: PCP Nurse Practitioner Family; Visit Provider Podiatrist Foot & Ankle Surgery | DX: M20.21 Hallux rigidus, right foot; L84 Corns and callosities | CPT/HCPCS: 73610; 73620 ==